=== PATIENT | male | born 1990 | race Hispanic/Latino ===

== ENCOUNTER 2017-11-25 16:34 | Emergency (ER) | payer SELFPAY ==
--- NOTE | 2017-11-25 17:46 | EDPHYS ---
Physician Documentation [facility] Name: Greg Serna Age: 27 yrs Sex: Male : 1990 Arrival Date: 11/25/2017 Time: 16:38 Bed 5 Private MD: out of town, doctor ED Physician Wesley Govea HPI: 11/25 17:09 This 27 yrs old Male presents to ER via Ambulatory with complaints of Chest gs Pain. 17:09 The patient or guardian reports chest pain that is located primarily in the anterior gs chest wall. The pain does not radiate. Associated signs and symptoms: Pertinent negatives: diaphoresis, dizziness, shortness of breath. The chest pain is described as sharp. Duration: The patient or guardian reports multiple episodes, that are intermittent, that wax and wane, with no pattern, the episodes last approximately 2 minute(s). Modifying factors: The symptoms are alleviated by nothing. the symptoms are aggravated by movement, twisting torso. Severity of pain: At its worst the pain was moderate in the emergency department the pain has resolved. The patient has experienced similar episodes in the past, a few times. Historical: - Allergies: 16:42 No Known Allergies; hj - Home Meds: 16:42 Xanax Oral [Active]; Lisinopril Oral [Active]; - PMHx: 16:42 Anxiety; Hypertension; - PSHx: 16:42 None; hj - Immunization history:: Adult Immunizations up to date. - Social history:: Smoking status: Patient uses tobacco products, denies chronic smoking, but will smoke occasionally, Patient uses alcohol, occasionally. - Ebola Screening: : Patient negative for fever greater than or equal to 101.5 degrees Fahrenheit, and additional compatible Ebola Virus Disease symptoms Patient denies exposure to infectious person Patient denies travel to an Ebola-affected area in the 21 days before illness onset. ROS: 17:09 All other systems are negative. gs Exam: 17:09 Head/Face: Normocephalic, atraumatic. Eyes: Pupils equal round and reactive to light, gs extra-ocular motions intact. Lids and lashes normal. Conjunctiva and sclera are non-icteric and not injected. Cornea within normal limits. Periorbital areas with no swelling, redness, or edema. ENT: Nares patent. No nasal discharge, no septal abnormalities noted. Tympanic membranes are normal and external auditory canals are clear. Oropharynx with no redness, swelling, or masses, exudates, or evidence of obstruction, uvula midline. Mucous membranes moist. Neck: Trachea midline, no thyromegaly or masses palpated, and no cervical lymphadenopathy. Supple, full range of motion without nuchal rigidity, or vertebral point tenderness. No Meningismus. Chest/axilla: Normal chest wall appearance and motion. Nontender with no deformity. No lesions are appreciated. Cardiovascular: Regular rate and rhythm with a normal S1 and S2. No gallops, murmurs, or rubs. Normal PMI, no JVD. No pulse deficits. Respiratory: Lungs have equal breath sounds bilaterally, clear to auscultation and percussion. No rales, rhonchi or wheezes noted. No increased work of breathing, no retractions or nasal flaring. Abdomen/GI: Soft, non-tender, with normal bowel sounds. No distension or tympany. No guarding or rebound. No evidence of tenderness throughout. Back: No spinal tenderness. No costovertebral tenderness. Full range of motion. Skin: Warm, dry with normal turgor. Normal color with no rashes, no lesions, and no evidence of cellulitis. MS/ Extremity: Pulses equal, no cyanosis. Neurovascular intact. Full, normal range of motion. Neuro: Awake and alert, GCS 15, oriented to person, place, time, and situation. Cranial nerves II-XII grossly intact. Motor strength 5/5 in all extremities. Sensory grossly intact. Cerebellar exam normal. Normal gait. 17:09 Constitutional: The patient appears in no acute distress, alert, awake. 17:09 ECG was reviewed by the Attending Physician. Vital Signs: 16:43 BP 141 / 84; Pulse 83; Resp 18; Temp 98.1(O); Pulse Ox 98% on R/A; Weight 81.65 kg; hj Height 5 ft. 4 in. (162.56 cm); Pain 6/10; 16:52 BP 139 / 88; Pulse 91; Resp 21; Pulse Ox 96% ; Pain 6/10; jl7 17:45 BP 139 / 88; Pulse 92; Resp 16; Pulse Ox 98% on R/A; jl7 16:43 Body Mass Index 30.90 (81.65 kg, 162.56 cm) hj MDM: 17:00 Patient medically screened. 17:09 Differential diagnosis: anxiety, chest wall pain, pleurisy, pneumonia. Data reviewed: vital signs, nurses notes. Response to treatment: the patient's symptoms have resolved after treatment, and as a result, I will discharge patient. 11/25 17:00 Order name: XRAY Chest Pa And Lat (2 Views) 06 17:49 Order name: EKG Electrocardiogram EDGA EC:09 Rate is 87 beats/min. Rhythm is regular. IL interval is normal. QRS interval is normal. T waves are Flattened in lead III. No ST changes noted. Clinical impression: Abnormal EKG without significant change. Interpreted by me. Administered Medications: No medications were administered Disposition: 11/25/17 17:45 Discharged to Home. Impression: Chest pain, unspecified. - Condition is Stable. - Discharge Instructions: Nonspecific Chest Pain, Managing Your High Blood Pressure. - Medication Reconciliation Form, Thank You Letter, Antibiotic Education, Prescription Opioid Use form. - Follow up: Private Physician; When: 2 - 3 days; Reason: Re-evaluation by your physician. Signatures: Dispatcher [employer] EDGA Tanvir Felton RN JOAN hj Bayron Fang RN RN jl7 Wesley Govea MD MD Corrections: (The following items were deleted from the chart) 17:53 17:45 11/25/2017 17:45 Discharged to Home. Impression: Chest pain, unspecified. jl7 Condition is Stable. Forms are Medication Reconciliation Form, Thank You Letter, Antibiotic Education, Prescription Opioid Use. Follow up: Private Physician; When: 2 - 3 days; Reason: Re-evaluation by your physician.
--- NOTE | 2017-11-25 17:46 | RAD REPORT ---
EXAM DESCRIPTION: RAD - Chest Pa And Lat (2 Views) - 11/25/2017 5:41 pm CLINICAL HISTORY: CHEST PAIN Chest pain. COMPARISON: Chest Single View dated 02/18/2016 FINDINGS: The lungs are clear. The heart is normal in size. No displaced fractures. IMPRESSION: No acute or concerning finding suspected.
--- NOTE | 2017-11-25 17:46 | ER ---
Nurse's Notes [facility] Name: Greg Serna Age: 27 yrs Sex: Male : 1990 Arrival Date: 11/25/2017 Time: 16:38 Bed 5 Private MD: out of town, doctor Diagnosis: Chest pain, unspecified Presentation: 11/25 16:39 Presenting complaint: Patient states: an hour ago, my chest started hurting, sharp hj pain, pain is 6/10; reports SOB; radiating to L arm and back of neck; denies nausea and vomiting;. Transition of care: patient was not received from another setting of care. Onset of symptoms was November 25, 2017 at 15:30. Risk Assessment: Do you want to hurt yourself or someone else? Patient reports no desire to harm self or others. Initial Sepsis Screen: Does the patient meet any 2 criteria? No. Patient's initial sepsis screen is negative. Does the patient have a suspected source of infection? No. Patient's initial sepsis screen is negative. Care prior to arrival: None. 16:39 Method Of Arrival: Ambulatory 16:39 Acuity: TENNILLE 3 hj Triage Assessment: 16:42 General: Appears in no apparent distress. uncomfortable, Behavior is calm, cooperative, hj appropriate for age. Pain: Complains of pain in chest. Cardiovascular: Reports chest pain. Historical: - Allergies: 16:42 No Known Allergies; hj - Home Meds: 16:42 Xanax Oral [Active]; Lisinopril Oral [Active]; hj - PMHx: 16:42 Anxiety; Hypertension; hj - PSHx: 16:42 None; hj - Immunization history:: Adult Immunizations up to date. - Social history:: Smoking status: Patient uses tobacco products, denies chronic smoking, but will smoke occasionally, Patient uses alcohol, occasionally. - Ebola Screening: : Patient negative for fever greater than or equal to 101.5 degrees Fahrenheit, and additional compatible Ebola Virus Disease symptoms Patient denies exposure to infectious person Patient denies travel to an Ebola-affected area in the 21 days before illness onset. Screenin:43 Abuse screen: Denies threats or abuse. Denies injuries from another. Nutritional hj screening: No deficits noted. Tuberculosis screening: No symptoms or risk factors identified. Fall Risk None identified. Assessment: 16:43 Pain: Pain radiates to left arm Pain began 1 hour ago. hj 16:52 General: Appears in no apparent distress. uncomfortable, Behavior is calm, cooperative, jl7 appropriate for age. Pain: Complains of pain in anterior aspect of left upper chest Pain radiates to left arm Pain currently is 6 out of 10 on a pain scale. Quality of pain is described as sharp, Pain began 1 hour ago. Is intermittent. Neuro: Level of Consciousness is awake, alert, obeys commands, Oriented to person, place, time, situation. Cardiovascular: Heart tones S1 S2 present Patient's skin is warm and dry. Respiratory: Airway is patent Respiratory effort is even, unlabored, Respiratory pattern is regular, symmetrical, Breath sounds are clear bilaterally. GI: No signs and/or symptoms were reported involving the gastrointestinal system. Patient currently denies diarrhea, nausea, vomiting. : No signs and/or symptoms were reported regarding the genitourinary system. EENT: No signs and/or symptoms were reported regarding the EENT system. Derm: Skin is pink, warm \T\ dry. Musculoskeletal: No signs and/or symptoms reported regarding the musculoskeletal system. 17:45 Reassessment: Dr. Govea at bedside discussing plan of care. jl7 Vital Signs: 16:43 BP 141 / 84; Pulse 83; Resp 18; Temp 98.1(O); Pulse Ox 98% on R/A; Weight 81.65 kg; hj Height 5 ft. 4 in. (162.56 cm); Pain 6/10; 16:52 BP 139 / 88; Pulse 91; Resp 21; Pulse Ox 96% ; Pain 6/10; jl7 17:45 BP 139 / 88; Pulse 92; Resp 16; Pulse Ox 98% on R/A; jl7 16:43 Body Mass Index 30.90 (81.65 kg, 162.56 cm) ED Course: 16:38 Patient arrived in ED. mr 16:38 out of town, doctor is Private Physician. mr 16:41 Triage completed. hj 16:42 Arm band placed on right wrist. hj 16:43 secured entrance monitor on. Pulse ox on. NIBP on. hj 16:43 Patient maintains SpO2 saturation greater than 95% on room air. hj 16:44 Bayron Fang, JOAN is Primary Nurse. jl7 16:52 Patient has correct armband on for positive identification. Placed in gown. Bed in low jl7 position. Call light in reach. Side rails up X 1. secured entrance monitor on. Pulse ox on. NIBP on. Warm blanket given. 16:55 Wesley Govea MD is Attending Physician. 17:38 X-ray completed. Portable x-ray completed in exam room. Patient tolerated procedure bb2 well. 17:41 XRAY Chest Pa And Lat (2 Views) In Process Unspecified. EDMS 17:52 No provider procedures requiring assistance completed. Patient did not have IV access jl7 during this emergency room visit. Administered Medications: No medications were administered Outcome: 17:45 Discharge ordered by . 17:52 Discharged to home ambulatory. jl7 17:52 Condition: stable 17:52 Discharge instructions given to patient, Instructed on discharge instructions, follow up and referral plans. Demonstrated understanding of instructions, follow-up care. 17:53 Patient left the ED. jl7 Signatures: Dispatcher [employer] EDIN Mary Schmidt Henry, RN RN Bayron Fang RN RN jl7 Wesley Govea MD MD Isela Sidhu bb2 Corrections: (The following items were deleted from the chart) 17:53 17:52 IV discontinued, intact, bleeding controlled, No redness/swelling at site. jl7 Pressure dressing applied, jl7
--- NOTE | 2017-11-25 20:35 | EKG ---
Test Date: 2017-11-25 Test Time: 16:41:12 [employer]el Automotive Technician: ERWIN MEASUREMENT RESULTS: Intervals: Rate: 87 PA: 140 QRSD: 78 QT: 360 QTc: 433 [place]: P: 21 PA: 140 QRS: 20 T: 18 INTERPRETIVE STATEMENTS: Normal sinus rhythm Normal ECG Compared to ECG 02/18/2016 14:21:44 Sinus arrhythmia no longer present Electronically Signed On 11-25-17 20:35:05 CDT by Martir Pearl
== END 2017-11-25 17:53 | disposition home or self-care (01) ==
LOC: ER 16:34
DX: R07.9 Chest pain, unspecified (principal); I10 Essential (primary) hypertension; F17.200 Nicotine dependence, unspecified, uncomplicated
CPT/HCPCS: 71046; 93005; 99284

== ENCOUNTER 2018-04-10 00:34 | Emergency (ER) | payer SELFPAY ==
--- NOTE | 2018-04-10 00:52 | EDPHYS ---
Physician Documentation [facility] Name: Greg Serna Age: 27 yrs Sex: Male : 1990 Arrival Date: 04/10/2018 Time: 00:34 Bed 7 Private MD: ED Physician Mikal Celaya HPI: 04/10 00:53 This 27 yrs old Male presents to ER via Ambulatory with complaints of Anxiety. snw 00:53 Onset: The symptoms/episode began/occurred chronic. Associated signs and symptoms: The snw patient has no apparent associated signs or symptoms. Modifying factors: The patient symptoms are alleviated by nothing. The patient has experienced similar episodes in the past, chronically. The patient has not recently seen a physician. pt states he has daily panic attacks, has not been to counseling, states he has taken xanax daily x 10 yrs. Historical: - Allergies: 00:49 No Known Allergies; ak1 - Home Meds: 00:49 Xanax Oral [Active]; lisinopril Oral [Active]; ak1 - PMHx: 00:49 Anxiety; Hypertension; ak1 - PSHx: 00:49 None; ak1 - Immunization history:: Adult Immunizations unknown. - Social history:: Smoking status: Patient/guardian denies using tobacco. - Ebola Screening: : No symptoms or risks identified at this time. ROS: 00:53 Constitutional: Negative for fever, chills, and weight loss, Eyes: Negative for injury, snw pain, redness, and discharge, ENT: Negative for injury, pain, and discharge, Neck: Negative for injury, pain, and swelling, Cardiovascular: Negative for chest pain, palpitations, and edema, Respiratory: Negative for shortness of breath, cough, wheezing, and pleuritic chest pain, Abdomen/GI: Negative for abdominal pain, nausea, vomiting, diarrhea, and constipation, Back: Negative for injury and pain, : Negative for injury, bleeding, discharge, and swelling, MS/Extremity: Negative for injury and deformity, Skin: Negative for injury, rash, and discoloration, Neuro: Negative for headache, weakness, numbness, tingling, and seizure. 00:53 Psych: Positive for anxiety. Exam: 00:52 Constitutional: This is a well developed, well nourished patient who is awake, alert, snw and in no acute distress. Head/Face: Normocephalic, atraumatic. Eyes: Pupils equal round and reactive to light, extra-ocular motions intact. Lids and lashes normal. Conjunctiva and sclera are non-icteric and not injected. Cornea within normal limits. Periorbital areas with no swelling, redness, or edema. ENT: Nares patent. No nasal discharge, no septal abnormalities noted. Tympanic membranes are normal and external auditory canals are clear. Oropharynx with no redness, swelling, or masses, exudates, or evidence of obstruction, uvula midline. Mucous membranes moist. Neck: Trachea midline, no thyromegaly or masses palpated, and no cervical lymphadenopathy. Supple, full range of motion without nuchal rigidity, or vertebral point tenderness. No Meningismus. Chest/axilla: Normal chest wall appearance and motion. Nontender with no deformity. No lesions are appreciated. Cardiovascular: Regular rate and rhythm with a normal S1 and S2. No gallops, murmurs, or rubs. Normal PMI, no JVD. No pulse deficits. Respiratory: Lungs have equal breath sounds bilaterally, clear to auscultation and percussion. No rales, rhonchi or wheezes noted. No increased work of breathing, no retractions or nasal flaring. Abdomen/GI: Soft, non-tender, with normal bowel sounds. No distension or tympany. No guarding or rebound. No evidence of tenderness throughout. Back: No spinal tenderness. No costovertebral tenderness. Full range of motion. Skin: Warm, dry with normal turgor. Normal color with no rashes, no lesions, and no evidence of cellulitis. MS/ Extremity: Pulses equal, no cyanosis. Neurovascular intact. Full, normal range of motion. Neuro: Awake and alert, GCS 15, oriented to person, place, time, and situation. Cranial nerves II-XII grossly intact. Motor strength 5/5 in all extremities. Sensory grossly intact. Cerebellar exam normal. Normal gait. 00:52 Psych: Behavior/mood is anxious, Affect is calm, Oriented to person, place, time, Patient has no thoughts/intents to harm self or others. Vital Signs: 00:49 BP 160 / 100; Pulse 71; Resp 18; Temp 98.3; Pulse Ox 99% on R/A; Weight 81.65 kg (R); ak1 Height 5 ft. 5 in. (165.10 cm) (R); Pain 0/10; 00:59 BP 131 / 90; Pulse 58; Resp 16; Temp 98.3; Pulse Ox 99% on R/A; Pain 0/10; ak1 00:49 Body Mass Index 29.95 (81.65 kg, 165.10 cm) ak1 MDM: 00:43 Patient medically screened. snw 00:54 Data reviewed: vital signs, nurses notes. Data interpreted: Pulse oximetry: on room air snw is 99 %. Interpretation: normal. Counseling: I had a detailed discussion with the patient and/or guardian regarding: the historical points, exam findings, and any diagnostic results supporting the discharge/admit diagnosis, the presence of at least one elevated blood pressure reading (>120/80) during this emergency department visit, the need for outpatient follow up, for definitive care. Special discussion: Based on the history and exam findings, there is no indication for further emergent testing or inpatient evaluation. I discussed with the patient/guardian the need to see the primary care provider for further evaluation of the symptoms. I discussed with the patient/guardian the need to see the psychiatrist for further evaluation of the symptoms. Administered Medications: 00:57 Drug: XANax Tablet 0.5 mg Route: PO; ak1 00:58 Follow up: Response: No adverse reaction ak1 Disposition: 06:54 Co-signature as Attending Physician, Mikal Celaya MD I agree with the assessment and wa plan of care. Disposition: 04/10/18 00:52 Discharged to Home. Impression: Patient's intentional underdosing of medication regimen, Anxiety disorder, unspecified. - Condition is Stable. - Discharge Instructions: Panic Attacks, Hypertension, Generalized Anxiety Disorder. - Medication Reconciliation Form, Thank You Letter, Antibiotic Education, Prescription Opioid Use form. - Follow up: Private Physician; When: 1 - 2 days; Reason: Recheck today's complaints, Continuance of care, Re-evaluation by your physician. Follow up: Emergency Department; When: As needed; Reason: Worsening of condition. Signatures: Alejandra Ca, MANAGER IMAGING-C MANAGER IMAGING-Csnw Mariel Billings RN RN ak1 Mikal Celaya MD MD ok Corrections: (The following items were deleted from the chart) 01:00 00:52 04/10/2018 00:52 Discharged to Home. Impression: Patient's intentional ak1 underdosing of medication regimen; Anxiety disorder, unspecified. Condition is Stable. Forms are Medication Reconciliation Form, Thank You Letter, Antibiotic Education, Prescription Opioid Use. Follow up: Private Physician; When: 1 - 2 days; Reason: Recheck today's complaints, Continuance of care, Re-evaluation by your physician. Follow up: Emergency Department; When: As needed; Reason: Worsening of condition. snw
--- NOTE | 2018-04-10 00:52 | ER ---
Nurse's Notes [facility] Name: Greg Serna Age: 27 yrs Sex: Male : 1990 Arrival Date: 04/10/2018 Time: 00:34 Bed 7 Private MD: Diagnosis: Patient's intentional underdosing of medication regimen;Anxiety disorder, unspecified Presentation: 04/10 00:46 Presenting complaint: Patient states: he has daily anxiety attacks. pt has run out of ak1 his alprazolam and his PCP is OOT. pt stated he did have a beer tonight to try and "calm down" pt stated he has not take his blood pressure medication tonight either. Transition of care: patient was not received from another setting of care. Onset of symptoms was April 10, 2018. Risk Assessment: Do you want to hurt yourself or someone else? Patient reports no desire to harm self or others. Initial Sepsis Screen: Does the patient meet any 2 criteria? No. Patient's initial sepsis screen is negative. Does the patient have a suspected source of infection? No. Patient's initial sepsis screen is negative. Care prior to arrival: None. 00:46 Method Of Arrival: Ambulatory ak1 00:46 Acuity: TENNILLE 4 ak1 Triage Assessment: 00:49 General: Appears in no apparent distress. Behavior is calm, cooperative. Pain: Denies ak1 pain. EENT: No signs and/or symptoms were reported regarding the EENT system. Neuro: No deficits noted. Cardiovascular: No deficits noted. Respiratory: No deficits noted. GI: No signs and/or symptoms were reported involving the gastrointestinal system. : No signs and/or symptoms were reported regarding the genitourinary system. Derm: No signs and/or symptoms reported regarding the dermatologic system. Musculoskeletal: No signs and/or symptoms reported regarding the musculoskeletal system. Historical: - Allergies: 00:49 No Known Allergies; ak1 - Home Meds: 00:49 Xanax Oral [Active]; lisinopril Oral [Active]; ak1 - PMHx: 00:49 Anxiety; Hypertension; ak1 - PSHx: 00:49 None; ak1 - Immunization history:: Adult Immunizations unknown. - Social history:: Smoking status: Patient/guardian denies using tobacco. - Ebola Screening: : No symptoms or risks identified at this time. Screenin:51 Abuse screen: Denies threats or abuse. Denies injuries from another. Nutritional ak1 screening: No deficits noted. Tuberculosis screening: No symptoms or risk factors identified. Fall Risk None identified. Assessment: 00:51 Reassessment: Patient appears in no apparent distress at this time. No changes from ak1 previously documented assessment. Patient is alert, oriented x 3, equal unlabored respirations, skin warm/dry/pink. see triage assessment. Vital Signs: 00:49 BP 160 / 100; Pulse 71; Resp 18; Temp 98.3; Pulse Ox 99% on R/A; Weight 81.65 kg (R); ak1 Height 5 ft. 5 in. (165.10 cm) (R); Pain 0/10; 00:59 BP 131 / 90; Pulse 58; Resp 16; Temp 98.3; Pulse Ox 99% on R/A; Pain 0/10; ak1 00:49 Body Mass Index 29.95 (81.65 kg, 165.10 cm) ak1 ED Course: 00:34 Patient arrived in ED. am2 00:43 Alejandra Ca FNP-C is PHCP. snw 00:43 Mikal Celaya MD is Attending Physician. snw 00:45 Mariel Billings RN is Primary Nurse. ak1 00:48 Triage completed. ak1 00:49 Arm band placed on Patient placed in an exam room, on a stretcher, on pulse oximetry, ak1 Patient notified of wait time. 00:51 Patient has correct armband on for positive identification. Bed in low position. Call ak1 light in reach. Side rails up X 1. Pulse ox on. NIBP on. 00:51 No provider procedures requiring assistance completed. Patient did not have IV access ak1 during this emergency room visit. Administered Medications: 00:57 Drug: XANax Tablet 0.5 mg Route: PO; ak1 00:58 Follow up: Response: No adverse reaction ak1 Outcome: 00:52 Discharge ordered by . snw 01:00 Discharged to home ambulatory, with family. ak1 01:00 Condition: good 01:00 Discharge instructions given to patient, Instructed on discharge instructions, follow up and referral plans. Demonstrated understanding of instructions, follow-up care. 01:00 Patient left the ED. ak1 Signatures: Alejandra Ca, RETAIL SHIFT LEADER-C RETAIL SHIFT LEADER-Csnw Mariel Billings, RN RN ak1 Mable Varghese am2
[2018-04-10] MEDS ORDERED: ALPRAZOLAM 0.5 MG TABLET ONE (01:01)
== END 2018-04-10 01:00 | disposition home or self-care (01) ==
LOC: ER 00:34
DX: F41.9 Anxiety disorder, unspecified (principal); T42.4X6A Underdosing of benzodiazepines, initial encounter; Z91.128 Patient's intentional underdosing of medication regimen for other reason; I10 Essential (primary) hypertension
CPT/HCPCS: 99283

== ENCOUNTER 2019-01-16 14:08 | Emergency (ER) | payer SELFPAY ==
[2019-01-16] MEDS ORDERED: LEVALBUTEROL 1.25 MG/3 ML NEB ONE (15:06)
[2019-01-16 15:25] LABS: Urine Blood TRACE (NEG); Urine Glucose NEGATIVE (NEG); Urine Protein NEGATIVE (NEG); Urine Specific Gravity 1.015 (1.005-1.030); Urine pH 7.5 (5.0-7.0)
--- NOTE | 2019-01-16 15:35 | RAD REPORT ---
EXAM DESCRIPTION: RAD - Chest Pa And Lat (2 Views) - 01/16/2019 3:26 pm CLINICAL HISTORY: PRODUCTIVE COUGH Chest pain. COMPARISON: Chest Pa And Lat (2 Views) dated 11/25/2017; Chest Single View dated 02/18/2016 FINDINGS: The lungs are clear. The heart is normal in size. No displaced fractures. IMPRESSION: No acute or concerning finding suspected.
[2019-01-16] MEDS ORDERED: dexAMETHasone 10 MG/ML VIAL ONE (15:52)
[2019-01-16] MEDS ORDERED: ONDANSETRON 4 MG (ODT) TAB ONE (15:52)
--- NOTE | 2019-01-16 16:24 | ER ---
Nurse's Notes [facility] Name: Greg Serna Age: 28 yrs Sex: Male : 1990 Arrival Date: 01/16/2019 Time: 14:09 Bed 28 Private MD: Diagnosis: Acute bronchitis Presentation: 01/16 14:13 Presenting complaint: Patient states: cough, dizzy, headache x 3 days ago. Pt also c/o aa5 vomiting that began yesterday and diarrhea. Pt also c/o pain with urination. Transition of care: patient was not received from another setting of care. Onset of symptoms was January 2019. Risk Assessment: Do you want to hurt yourself or someone else? Patient reports no desire to harm self or others. Initial Sepsis Screen: Does the patient meet any 2 criteria? No. Patient's initial sepsis screen is negative. Does the patient have a suspected source of infection? No. Patient's initial sepsis screen is negative. Care prior to arrival: None. 14:13 Acuity: TENNILLE 3 aa5 14:13 Method Of Arrival: Ambulatory aa5 Historical: - Allergies: 14:15 No Known Allergies; aa5 - Home Meds: 14:15 losartan-hydrochlorothiazide 100-12.5 mg oral tab once daily [Active]; aa5 14:15 Xanax Oral [Active]; aa5 - PMHx: 14:15 Anxiety; Hypertension; aa5 - PSHx: 14:15 None; aa5 - Immunization history:: Flu vaccine is not up to date. - Social history:: Smoking status: Patient uses tobacco products, denies chronic smoking, but will smoke occasionally. - Ebola Screening: : No symptoms or risks identified at this time. Screenin:44 Abuse screen: Denies threats or abuse. Nutritional screening: No deficits noted. la1 Tuberculosis screening: No symptoms or risk factors identified. Fall Risk None identified. Assessment: 15:44 General: Appears in no apparent distress. Behavior is calm, cooperative. Pain: Denies la1 pain. Neuro: Level of Consciousness is awake, alert, obeys commands, Oriented to person, place, time, situation. Cardiovascular: Capillary refill < 3 seconds Patient's skin is warm and dry. Respiratory: Airway is patent Respiratory effort is even, unlabored, Respiratory pattern is regular, symmetrical, Breath sounds are clear bilaterally. GI: No signs and/or symptoms were reported involving the gastrointestinal system. : No signs and/or symptoms were reported regarding the genitourinary system. 16:35 Reassessment: Patient appears in no apparent distress at this time. No changes from la1 previously documented assessment. Patient and/or family updated on plan of care and expected duration. Pain level reassessed. Vital Signs: 14:15 BP 142 / 85; Pulse 71; Resp 16 S; Temp 97.6(TE); Pulse Ox 97% on R/A; Weight 83.91 kg aa5 (R); Height 5 ft. 6 in. (167.64 cm) (R); Pain 0/10; 14:15 Body Mass Index 29.86 (83.91 kg, 167.64 cm) aa5 ED Course: 14:09 Patient arrived in ED. as 14:13 Arm band placed on. aa5 14:14 Triage completed. aa5 14:17 Ottoniel Duron PA is PHCP. [facility] 14:17 Yoel Harrington MD is Attending Physician. [facility] 14:45 Isaiah Schmitt, JOAN is Primary Nurse. la1 15:23 Chest Pa And Lat (2 Views) XRAY In Process Unspecified. EDMS 15:44 Bed in low position. Call light in reach. la1 16:35 No provider procedures requiring assistance completed. Patient did not have IV access la1 during this emergency room visit. Administered Medications: 15:07 Drug: Xopenex (3) 1.25 mg Route: Inhalation; mg2 15:57 Drug: Zofran 4 mg Route: PO; la1 16:35 Follow up: Response: No adverse reaction la1 15:57 Drug: Decadron 10 mg Route: IM; Site: right gluteus; la1 16:36 Follow up: Response: No adverse reaction la1 Outcome: 16:24 Discharge ordered by . yfn 16:35 Discharged to home ambulatory. la1 16:35 Condition: stable 16:35 Discharge instructions given to patient, Instructed on discharge instructions, follow up and referral plans. medication usage, Demonstrated understanding of instructions, follow-up care, medications, Prescriptions given X 1. 16:35 Patient left the ED. la1 Signatures: Dispatcher [employer] EDMS Ottoniel Duron PA PA jmm Martinez, Amelia as Calderon, Michelle, RN RN aa5 Isaiah Schmitt, RN RN la1 Domo Gee, RN RN mg2
--- NOTE | 2019-01-16 16:25 | EDPHYS ---
Physician Documentation [facility] Name: Greg Serna Age: 28 yrs Sex: Male : 1990 Arrival Date: 01/16/2019 Time: 14:09 Bed 28 Private MD: ED Physician Yoel Harrington HPI: 01/16 14:40 This 28 yrs old Male presents to ER via Ambulatory with complaints of Flu jmm Symptoms. 14:40 The patient or guardian reports cough. Onset: The symptoms/episode began/occurred jmm gradually, 3 day(s) ago. Modifying factors: The symptoms are alleviated by nothing. the symptoms are aggravated by nothing. Associated signs and symptoms: Pertinent positives: vomiting. This is a 28 year old male with a history of anxiety, htn that presents to the ED with complaints of productive cough, vomiting, diarrhea, and burning with urniation. Patient denies abdominal pain. . Historical: - Allergies: 14:15 No Known Allergies; aa5 - Home Meds: 14:15 losartan-hydrochlorothiazide 100-12.5 mg oral tab once daily [Active]; aa5 14:15 Xanax Oral [Active]; aa5 - PMHx: 14:15 Anxiety; Hypertension; aa5 - PSHx: 14:15 None; aa5 - Immunization history:: Flu vaccine is not up to date. - Social history:: Smoking status: Patient uses tobacco products, denies chronic smoking, but will smoke occasionally. - Ebola Screening: : No symptoms or risks identified at this time. ROS: 14:40 Constitutional: Negative for fever, chills, and weight loss, Cardiovascular: Negative jmm for chest pain, palpitations, and edema. 14:40 Respiratory: Positive for cough. 14:40 Abdomen/GI: Positive for nausea and vomiting, diarrhea. 14:40 All other systems are negative. Exam: 14:40 Constitutional: This is a well developed, well nourished patient who is awake, alert, jmm and in no acute distress. Head/Face: atraumatic. Eyes: EOMI, no conjunctival erythema appreciated 14:40 Neck: Trachea midline, Supple Chest/axilla: Normal chest wall appearance and motion. Cardiovascular: Regular rate and rhythm. No edema appreciated 14:40 Back: Normal ROM Skin: General appearance color normal MS/ Extremity: Moves all extremities, no obvious deformities appreciated, no edema noted to the lower extremities Neuro: Awake and alert, normal gait Psych: Behavior is normal, Mood is normal, Patient is cooperative and pleasant 14:40 ENT: TM's: Posterior pharynx: is normal. 14:40 Respiratory: the patient does not display signs of respiratory distress, Respirations: normal, Breath sounds: are clear throughout. 14:40 Abdomen/GI: Inspection: abdomen appears normal, Bowel sounds: normal, Palpation: abdomen is soft and non-tender, in all quadrants. Vital Signs: 14:15 BP 142 / 85; Pulse 71; Resp 16 S; Temp 97.6(TE); Pulse Ox 97% on R/A; Weight 83.91 kg aa5 (R); Height 5 ft. 6 in. (167.64 cm) (R); Pain 0/10; 14:15 Body Mass Index 29.86 (83.91 kg, 167.64 cm) aa5 MDM: 14:48 Patient medically screened. [facility] 16:22 Data reviewed: vital signs, nurses notes. Counseling: I had a detailed discussion with yfn the patient and/or guardian regarding: the historical points, exam findings, and any diagnostic results supporting the discharge/admit diagnosis, lab results, radiology results, the need for outpatient follow up. ED course: Patient is alert and non toxic in appearance in the ED. Symptoms appear most likely due to viral illness. Patient is otherwise given strict return precautions. Patient understood and agrees with the plan of care. . 01/16 15:09 Order name: Urine Dipstick--Ancillary (enter results); Complete Time: 15:36 [facility] 01/16 14:52 Order name: Chest Pa And Lat (2 Views) XRAY; Complete Time: 15:44 [facility] 01/16 14:52 Order name: Urine Dipstick-Ancillary (obtain specimen); Complete Time: 15:05 [facility] 01/16 15:46 Order name: PO challenge; Complete Time: 15:56 [facility] Administered Medications: 15:07 Drug: Xopenex (3) 1.25 mg Route: Inhalation; mg2 15:57 Drug: Zofran 4 mg Route: PO; la1 16:35 Follow up: Response: No adverse reaction la1 15:57 Drug: Decadron 10 mg Route: IM; Site: right gluteus; la1 16:36 Follow up: Response: No adverse reaction la1 Disposition: 01/16/19 16:24 Discharged to Home. Impression: Acute bronchitis. - Condition is Stable. - Discharge Instructions: Acute Bronchitis, Adult. - Prescriptions for promethazine- DM - take 5 milliliter by ORAL route every 4-6 hours; 120 milliliter. - Medication Reconciliation Form, Thank You Letter, Antibiotic Education, Prescription Opioid Use form. - Follow up: Private Physician; When: 1 - 2 days; Reason: Recheck today's complaints, Continuance of care, Re-evaluation by your physician. Addendum: 01/19/2019 09:24 Co-signature as Attending Physician, Yoel Harrington MD I agree with the assessment and k dr plan of care. Signatures: Dispatcher [employer] EDMS Yoel Harrington MD MD [facility] Ottoniel Duron PA PA jmm Calderon, Audri, RN RN aa5 Isaiah Schmitt RN RN la1 Domo Gee RN RN mg2 Corrections: (The following items were deleted from the chart) 01/16 16:35 16:24 01/16/2019 16:24 Discharged to Home. Impression: Acute bronchitis. Condition is la1 Stable. Forms are Medication Reconciliation Form, Thank You Letter, Antibiotic Education, Prescription Opioid Use. Follow up: Private Physician; When: 1 - 2 days; Reason: Recheck today's complaints, Continuance of care, Re-evaluation by your physician. yfn
== END 2019-01-16 16:35 | disposition home or self-care (01) ==
LOC: ER 14:08
DX: J20.9 Acute bronchitis, unspecified (principal); I10 Essential (primary) hypertension; F41.9 Anxiety disorder, unspecified; Z72.0 Tobacco use
CPT/HCPCS: 71046; 81003; 96372; 99284; J1100

== ENCOUNTER 2019-04-09 16:03 | Emergency (ER) | payer SELFPAY ==
[2019-04-09] MEDS ORDERED: IBUPROFEN 200 MG TAB PO ONE (17:33)
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
--- NOTE | 2019-04-09 18:50 | ER ---
Nurse's Notes [facility] Name: Greg Serna Age: 28 yrs Sex: Male : 1990 Arrival Date: 04/09/2019 Time: 18:06 Bed 11 Private MD: Diagnosis: Displaced fracture of base of fifth metacarpal bone. left hand-proximal ;Displaced fracture of base of fourth metacarpal bone, left hand-distal Screenin/31 18:35 Abuse screen: Denies threats or abuse. Denies injuries from another. Nutritional hb screening: No deficits noted. Tuberculosis screening: No symptoms or risk factors identified. Fall Risk None identified. Assessment: 18:07 Reassessment: see paper chart for downtime charting. hb 18:48 Reassessment: splint check by JOSI Arriaga. hb ED Course: 18:06 Hand Left 3 View In Process Unspecified. kb 18:06 Patient arrived in ED. kb 18:06 Cor[facility] Myers [facility]C [facility]. kb 18:06 Yoel Harrington MD is Attending Physician. kb 18:07 Liza Merritt, RN is Primary Nurse. iw 18:27 Orthoglass splint: Ulnar gutter/Boxer splint applied on left forearm. Radial pulse jb1 present and within normal limits before and after application of splint. Capillary refill was one second before and after application of splint.. 18:48 No provider procedures requiring assistance completed. Patient did not have IV access hb during this emergency room visit. Administered Medications: No medications were administered Outcome: 18:24 Discharge ordered by MD. kb 18:48 Discharged to home ambulatory. hb 18:48 Condition: stable 18:48 Discharge instructions given to patient, Instructed on discharge instructions, follow up and referral plans. medication usage, Demonstrated understanding of instructions, follow-up care, medications, splint care, Prescriptions given X 1. 18:49 Patient left the ED. hb Signatures: Kristian Vera jb1 Corina Myers FNP-C FNP-Ckb Williams, Irene, RN RN iw Marixa Bush RN RN hb
== END 2019-04-09 18:49 | disposition home or self-care (01) ==
LOC: ER 16:03
PROC: 2W3DX1Z Immobilization of Left Lower Arm using Splint (ICD-10-PCS; principal; 2019-04-09)
DX: S62.317A Displaced fracture of base of fifth metacarpal bone, left hand, initial encounter for closed fracture (principal); S62.315A Displaced fracture of base of fourth metacarpal bone, left hand, initial encounter for closed fracture; Y04.2XXA Assault by strike against or bumped into by another person, initial encounter; Y93.89 Activity, other specified; Y92.9 Unspecified place or not applicable
CPT/HCPCS: 99283

== ENCOUNTER 2019-11-21 09:55 | Emergency (ER) | payer SELFPAY ==
--- NOTE | 2019-11-21 10:36 | ER ---
Nurse's Notes [facility] Name: Gerg Serna Age: 29 yrs Sex: Male : 1990 Arrival Date: 11/21/2019 Time: 09:57 Bed 19 Private MD: Yuri Minaya T Diagnosis: Acute tonsillitis Presentation: 11/20 10:17 Chief complaint: Patient states: Sore throat since yesterday. Hurts to swallow and ca1 unable to eat anything. Denies fever. Coronavirus screen: Proceed with normal triage. Patient denies a cough. Patient denies shortness of breath or difficulty breathing. Patient denies measured and/or subjective temperature greater than 100.4F prior to today's visit. Patient denies travel on a cruise ship or to a country the [facility] currently lists as an affected area. Patient denies contact with known and/or suspected case of COVID-19. Ebola Screen: Patient negative for fever greater than or equal to 101.5 degrees Fahrenheit, and additional compatible Ebola Virus Disease symptoms Patient denies exposure to infectious person. Patient denies travel to an Ebola-affected area in the 21 days before illness onset. No symptoms or risks identified at this time. Initial Sepsis Screen: Does the patient meet any 2 criteria? No. Patient's initial sepsis screen is negative. Does the patient have a suspected source of infection? No. Patient's initial sepsis screen is negative. Risk Assessment: Do you want to hurt yourself or someone else? Patient reports no desire to harm self or others. Onset of symptoms was November 21, 2019. 10:17 Method Of Arrival: Ambulatory ca1 10:17 Acuity: TENNILLE 4 ca1 Triage Assessment: 10:19 General: Appears in no apparent distress. comfortable, Behavior is calm, cooperative, ca1 appropriate for age. Pain: Complains of pain in throat Pain currently is 6 out of 10 on a pain scale. Pain began 1 day ago. Aggravated by eating. EENT: Throat is clear is reddened bilaterally. Neuro: Level of Consciousness is awake, alert, obeys commands, Oriented to person, place, time, situation, Appropriate for age. Cardiovascular: Heart tones S1 S2 present Capillary refill < 3 seconds Patient's skin is warm and dry. Respiratory: Airway is patent Respiratory effort is even, unlabored, Respiratory pattern is regular, symmetrical, Breath sounds are clear bilaterally. GI: Abdomen is flat, non-distended, Bowel sounds present X 4 quads. Abd is soft and non tender X 4 quads. : No signs and/or symptoms were reported regarding the genitourinary system. Derm: Skin is intact, is healthy with good turgor, Skin is pink, warm \T\ dry. Musculoskeletal: Circulation, motion, and sensation intact. Capillary refill < 3 seconds. Historical: - Allergies: 10:19 No Known Allergies; ca1 - Home Meds: 10:19 olmesartan-hydrochlorothiazide oral 20-12.5mg oral 1 tab once daily [Active]; Xanax ca1 Oral [Active]; - PMHx: 10:19 Anxiety; Hypertension; ca1 - PSHx: 10:19 None; ca1 - Immunization history:: Adult Immunizations up to date. - Social history:: Smoking status: Patient reports the use of cigarette tobacco products, smokes one-half pack cigarettes per day. - Family history:: not pertinent. Screenin:20 Abuse screen: Denies threats or abuse. Denies injuries from another. Nutritional ca1 screening: No deficits noted. Tuberculosis screening: No symptoms or risk factors identified. Fall Risk None identified. Assessment: 10:20 Reassessment: SEE triage notes. Respiratory: Airway is patent Respiratory effort is ca1 even, unlabored, Respiratory pattern is regular, symmetrical, Breath sounds are clear bilaterally. 10:25 Reassessment: VO cancel strep swab. ca1 10:50 Reassessment: Patient appears in no apparent distress at this time. Patient is alert, ca1 oriented x 3, equal unlabored respirations, skin warm/dry/pink. Vital Signs: 10:17 BP 118 / 67; Pulse 72; Resp 16 S; Temp 97.2(TE); Pulse Ox 100% on R/A; Weight 81.65 kg ca1 (R); Height 5 ft. 6 in. (167.64 cm) (R); Pain 6/10; 10:50 BP 107 / 79; Pulse 69; Resp 15 S; Pulse Ox 100% on R/A; ca1 10:17 Body Mass Index 29.05 (81.65 kg, 167.64 cm) ca1 ED Course: 09:57 Patient arrived in ED. ag5 09:57 Yuri Minaya MD is Private Physician. ag5 09:58 Lukas Castillo MD is Attending Physician. [facility] 10:16 Ayde Hong, RN is Primary Nurse. ca1 10:18 Triage completed. ca1 10:19 Arm band placed on right wrist. ca1 10:20 Patient has correct armband on for positive identification. Bed in low position. Call ca1 light in reach. Side rails up X 1. Pulse ox on. NIBP on. 10:20 No provider procedures requiring assistance completed. Patient did not have IV access ca1 during this emergency room visit. 10:34 Yuri Minaya MD is Referral Physician. [facility] Administered Medications: 10:34 Drug: Augmentin 875 mg Route: PO; ca1 10:50 Follow up: Response: No adverse reaction ca1 Outcome: 10:35 Discharge ordered by . [facility] 10:51 Discharged to home ambulatory. ca1 10:51 Condition: stable 10:51 Discharge instructions given to patient, Instructed on discharge instructions, follow up and referral plans. medication usage, Demonstrated understanding of instructions, follow-up care, medications, Prescriptions given X 1. 10:51 Patient left the ED. ca1 Signatures: Lukas Castillo MD MD cha Acob, Cheryl, RN RN ca1 Carolyn Dang ag5 Corrections: (The following items were deleted from the chart) 10:25 10:20 Respiratory: Airway is patent Respiratory effort is even, unlabored, Respiratory ca1 pattern is regular, symmetrical, ca1
--- NOTE | 2019-11-21 10:36 | EDPHYS ---
Physician Documentation [facility] Name: Greg Serna Age: 29 yrs Sex: Male : 1990 Arrival Date: 11/21/2019 Time: 09:57 Bed 19 Private MD: Yuri Minaya T ED Physician Lukas Castillo HPI: 11/20 10:29 This 29 yrs old Male presents to ER via Ambulatory with complaints of Sore remigio Throat. 10:29 The patient presents with sore throat. The patient describes throat pain as raw, remigio scratchy. Onset: The symptoms/episode began/occurred 1 day(s) ago. Severity of symptoms: At their worst the symptoms were mild, in the emergency department the symptoms are unchanged. Modifying factors: The symptoms are alleviated by. Associated signs and symptoms: Pertinent positives: rhinorrhea, Sore throat. The patient has not experienced similar symptoms in the past. Historical: - Allergies: 10:19 No Known Allergies; ca1 - Home Meds: 10:19 olmesartan-hydrochlorothiazide oral 20-12.5mg oral 1 tab once daily [Active]; Xanax ca1 Oral [Active]; - PMHx: 10:19 Anxiety; Hypertension; ca1 - PSHx: 10:19 None; ca1 - Immunization history:: Adult Immunizations up to date. - Social history:: Smoking status: Patient reports the use of cigarette tobacco products, smokes one-half pack cigarettes per day. - Family history:: not pertinent. ROS: 10:29 Constitutional: Negative for fever, chills, and weight loss, Eyes: Negative for injury, remigio pain, redness, and discharge, Neck: Negative for injury, pain, and swelling, Cardiovascular: Negative for chest pain, palpitations, and edema, Respiratory: Negative for shortness of breath, cough, wheezing, and pleuritic chest pain, Abdomen/GI: Negative for abdominal pain, nausea, vomiting, diarrhea, and constipation, Back: Negative for injury and pain, : Negative for injury, bleeding, discharge, and swelling, MS/Extremity: Negative for injury and deformity, Skin: Negative for injury, rash, and discoloration, Neuro: Negative for headache, weakness, numbness, tingling, and seizure, Psych: Negative for depression, anxiety, suicide ideation, homicidal ideation, and hallucinations, Allergy/Immunology: Negative for hives, rash, and allergies, Endocrine: Negative for neck swelling, polydipsia, polyuria, polyphagia, and marked weight changes, Hematologic/Lymphatic: Negative for swollen nodes, abnormal bleeding, and unusual bruising. 10:29 ENT: Positive for difficulty swallowing. 10:29 Neck: Negative for injury or acute deformity, pain with movement, pain at rest, stiffness. Exam: 10:29 Constitutional: This is a well developed, well nourished patient who is awake, alert, remigio and in no acute distress. Head/Face: Normocephalic, atraumatic. Eyes: Pupils equal round and reactive to light, extra-ocular motions intact. Lids and lashes normal. Conjunctiva and sclera are non-icteric and not injected. Cornea within normal limits. Periorbital areas with no swelling, redness, or edema. Neck: Trachea midline, no thyromegaly or masses palpated, and no cervical lymphadenopathy. Supple, full range of motion without nuchal rigidity, or vertebral point tenderness. No Meningismus. Chest/axilla: Normal chest wall appearance and motion. Nontender with no deformity. No lesions are appreciated. Cardiovascular: Regular rate and rhythm with a normal S1 and S2. No gallops, murmurs, or rubs. Normal PMI, no JVD. No pulse deficits. Respiratory: Lungs have equal breath sounds bilaterally, clear to auscultation and percussion. No rales, rhonchi or wheezes noted. No increased work of breathing, no retractions or nasal flaring. Abdomen/GI: Soft, non-tender, with normal bowel sounds. No distension or tympany. No guarding or rebound. No evidence of tenderness throughout. Back: No spinal tenderness. No costovertebral tenderness. Full range of motion. Skin: Warm, dry with normal turgor. Normal color with no rashes, no lesions, and no evidence of cellulitis. MS/ Extremity: Pulses equal, no cyanosis. Neurovascular intact. Full, normal range of motion. Neuro: Awake and alert, GCS 15, oriented to person, place, time, and situation. Cranial nerves II-XII grossly intact. Motor strength 5/5 in all extremities. Sensory grossly intact. Cerebellar exam normal. Normal gait. Psych: Awake, alert, with orientation to person, place and time. Behavior, mood, and affect are within normal limits. 10:29 ENT: Posterior pharynx: erythema, that is mild, that is moderate. Vital Signs: 10:17 BP 118 / 67; Pulse 72; Resp 16 S; Temp 97.2(TE); Pulse Ox 100% on R/A; Weight 81.65 kg ca1 (R); Height 5 ft. 6 in. (167.64 cm) (R); Pain 6/10; 10:50 BP 107 / 79; Pulse 69; Resp 15 S; Pulse Ox 100% on R/A; ca1 10:17 Body Mass Index 29.05 (81.65 kg, 167.64 cm) ca1 MDM: 10:19 Patient medically screened. [facility] 10:31 Data reviewed: vital signs, nurses notes. [facility] 10:31 Differential diagnosis: Allergic rhinitis, laryngitis, peritonsillar abscess remigio pharyngitis, tonsillitis, upper respiratory infection, uvulitis. Data interpreted: court recording monitor: rate is 72 beats/min, Pulse oximetry: on room air is 100 %. Counseling: I had a detailed discussion with the patient and/or guardian regarding: the historical points, exam findings, and any diagnostic results supporting the discharge/admit diagnosis, the need for outpatient follow up, for definitive care, a family practitioner. 10:32 ED course: pt refused to allow throat. ED course: red sore throat. [facility] Administered Medications: 10:34 Drug: Augmentin 875 mg Route: PO; ca1 10:50 Follow up: Response: No adverse reaction ca1 Disposition: 11/21/19 10:35 Discharged to Home. Impression: Acute tonsillitis. - Condition is Stable. - Discharge Instructions: Tonsillitis, Tonsillitis, [id number]. - Prescriptions for Augmentin 875- 125 mg Oral Tablet - take 1 tablet by ORAL route every 12 hours for 10 days; 20 tablet. - Medication Reconciliation Form, Thank You Letter, Antibiotic Education, Prescription Opioid Use, Work release form form. - Follow up: Yuri Minaya MD; When: 2 - 3 days; Reason: Recheck today's complaints, Continuance of care, Re-evaluation by your physician. - Problem is new. - Symptoms have improved. Signatures: Dispatcher [employer] EDMS Lukas Castillo MD MD [facility] Ayde Hong RN RN ca1 Corrections: (The following items were deleted from the chart) 10:27 10:17 Group A Streptococcus Rapid [id number] ordered. EDMS EDMS 10:51 10:35 11/21/2019 10:35 Discharged to Home. Impression: Acute tonsillitis. Condition is ca1 Stable. Forms are Medication Reconciliation Form, Thank You Letter, Antibiotic Education, Prescription Opioid Use. Follow up: Yuri Minaya; When: 2 - 3 days; Reason: Recheck today's complaints, Continuance of care, Re-evaluation by your physician. Problem is new. Symptoms have improved. remigio
[2019-11-21] MEDS ORDERED: AMOX/K CLAV 875 MG TAB ONE (10:41)
[2019-11-21 10:57] VITALS: TEMP 97.2; O2SAT 100
[2019-11-21 10:59] VITALS: BP 107/79
== END 2019-11-21 10:51 | disposition home or self-care (01) ==
LOC: ER 09:55
DX: J03.90 Acute tonsillitis, unspecified (principal); F41.9 Anxiety disorder, unspecified; I10 Essential (primary) hypertension; F17.210 Nicotine dependence, cigarettes, uncomplicated
CPT/HCPCS: 99283

== ENCOUNTER 2023-04-17 20:09 | Emergency (ER) | payer SELFPAY ==
[2023-04-17] MEDS ORDERED: clonazePAM 1 MG TAB ONE (21:26)
[2023-04-17] MEDS ORDERED: lisinopriL 20 MG TAB ONE (21:26)
[2023-04-17] MEDS ORDERED: NA CHLORIDE 0.9% 1,000 ML ONE (21:27)
[2023-04-17] MEDS ORDERED: LORazepam 2 MG/ML VIAL ONE (21:27)
[2023-04-17 21:30] LABS: Absolute Lymphocytes (CBC) 1.8 K/uL (0.7-4.9); Hematocrit 42.8 % (39.6-49.0); MPV 6.9 fL (7.6-11.3); Platelets 291 thou/uL (152-406); RBC Red Blood Cell Count 4.45 M/uL (4.33-5.43)
[2023-04-17 21:39] LABS: Specific Gravity 1.017 (1.005-1.030); Urine Bilirubin NEGATIVE (Negative); Urine Blood Negative (Negative); Urine Clarity Clear (Clear); Urine Color Light-Yellow (Yellow); Urine Glucose NEGATIVE (Negative); Urine Protein NEGATIVE (Negative); Urine Urobilinogen Normal (Normal); Urine pH 6.5 (5.0-7.0)
[2023-04-17 21:49] LABS: Bilirubin Total 0.6 mg/dL (0.2-1.0); Potassium 4.2 mEq/L (3.5-5.1); Protein, Total 7.9 g/dL (6.4-8.2)
[2023-04-17 21:59] LABS: Barbiturates NEGATIVE (NEGATIVE); Benzodiazepines POSITIVE (NEGATIVE); Cocaine NEGATIVE (NEGATIVE); METHAMPHETAM NEGATIVE (NEGATIVE); Methadone NEGATIVE (NEGATIVE); Opiates NEGATIVE (NEGATIVE); Phencyclidine NEGATIVE (NEGATIVE); THC Cannibis NEGATIVE (NEGATIVE)
--- NOTE | 2023-04-17 22:05 | EDPHYS ---
Physician Documentation [facility] Name: Greg Serna Age: 32 yrs Sex: Male : 1990 Arrival Date: 04/17/2023 Time: 20:09 Bed 13 Private MD: KOFI Physician Lukas Castillo HPI: 04/17 20:56 This 32 yrs old Male presents to ER via Ambulatory with complaints of flanlk remigio pain, htn and anxiety. 20:56 The patient presents to the emergency department with anxiety. Onset: The remigio symptoms/episode began/occurred 3 day(s) ago. Past psychiatric history: Prior diagnosis: anxiety and htn. The patient presents with pain that is acute, with no known mechanism of injury. The symptoms are located in the low back, left mid back and right mid back. Onset: The symptoms/episode began/occurred 3 day(s) ago. The pain does not radiate. bilateral flank pain, htn out of bp meds and xanax. Historical: - Allergies: 20:24 No Known Allergies; lg3 - Home Meds: 20:24 Xanax Oral [Active]; olmesartan-hydrochlorothiazide 20-12.5mg Oral 1 tab once daily lg3 [Active]; - PMHx: 20:24 Anxiety; Hypertension; lg3 - PSHx: 20:24 None; lg3 - Immunization history:: Adult Immunizations up to date. - Social history:: Smoking status: Patient denies any tobacco usage or history of. Patient uses alcohol, on a daily basis. - Family history:: not pertinent. ROS: 20:56 Constitutional: Negative for fever, chills, and weight loss, Eyes: Negative for injury, remigio pain, redness, and discharge, ENT: Negative for injury, pain, and discharge, Neck: Negative for injury, pain, and swelling, Cardiovascular: Negative for chest pain, palpitations, and edema, Respiratory: Negative for shortness of breath, cough, wheezing, and pleuritic chest pain, Abdomen/GI: Negative for abdominal pain, nausea, vomiting, diarrhea, and constipation, : Negative for injury, bleeding, discharge, and swelling, MS/Extremity: Negative for injury and deformity, Skin: Negative for injury, rash, and discoloration, Neuro: Negative for headache, weakness, numbness, tingling, and seizure, 20:56 Back: Positive for flank pain, bilaterally, Exam: 20:56 Constitutional: This is a well developed, well nourished patient who is awake, alert, remigio and in no acute distress. Head/Face: Normocephalic, atraumatic. Eyes: Pupils equal round and reactive to light, extra-ocular motions intact. Lids and lashes normal. Conjunctiva and sclera are non-icteric and not injected. Cornea within normal limits. Periorbital areas with no swelling, redness, or edema. ENT: Nares patent. No nasal discharge, no septal abnormalities noted. Tympanic membranes are normal and external auditory canals are clear. Oropharynx with no redness, swelling, or masses, exudates, or evidence of obstruction, uvula midline. Mucous membranes moist. Neck: Trachea midline, no thyromegaly or masses palpated, and no cervical lymphadenopathy. Supple, full range of motion without nuchal rigidity, or vertebral point tenderness. No Meningismus. Chest/axilla: Normal chest wall appearance and motion. Nontender with no deformity. No lesions are appreciated. Cardiovascular: Regular rate and rhythm with a normal S1 and S2. No gallops, murmurs, or rubs. Normal PMI, no JVD. No pulse deficits. Respiratory: Lungs have equal breath sounds bilaterally, clear to auscultation and percussion. No rales, rhonchi or wheezes noted. No increased work of breathing, no retractions or nasal flaring. Abdomen/GI: Soft, non-tender, with normal bowel sounds. No distension or tympany. No guarding or rebound. No evidence of tenderness throughout. Male : Normal genitalia with no discharge or lesions. Skin: Warm, dry with normal turgor. Normal color with no rashes, no lesions, and no evidence of cellulitis. MS/ Extremity: Pulses equal, no cyanosis. Neurovascular intact. Full, normal range of motion. Neuro: Awake and alert, GCS 15, oriented to person, place, time, and situation. Cranial nerves II-XII grossly intact. Motor strength 5/5 in all extremities. Sensory grossly intact. Cerebellar exam normal. Normal gait. 20:56 Back: pain, that is mild, of the left mid back and right mid back, ROM is normal, normal spinal alignment noted, CVA tenderness, that is mild, is noted bilaterally, muscle spasm, is not present, 20:56 Psych: Behavior/mood is cooperative, anxious, Affect is animated, Oriented to person, place, time, Patient has no thoughts/intents to harm self or others. Judgement / Insight is normal. Memory is normal. Recent memory is intact. Remote memory is intact. Delusions/hallucinations are not present. Vital Signs: 20:22 BP 140 / 107; Pulse 88; Resp 17; Temp 98.6(O); Pulse Ox 99% on R/A; Weight 74.84 kg lg3 (R); Height 5 ft. 6 in. (R); 21:08 BP 148 / 104; Pulse 87; Resp 17 S; Pulse Ox 100% on R/A; jw7 22:15 BP 131 / 78; Pulse 90; Resp 16 S; Pulse Ox 99% on R/A; jb4 20:22 Body Mass Index 26.63 (74.84 kg, 167.64 cm) lg3 MDM: 20:28 Patient medically screened. [facility] 21:04 Differential diagnosis: drug withdrawal. acute psychotic break, depression, psychosis remigio secondary to non-compliance, Cholelithiasis chronic back pain, Fatigue Hydronephrosis Pyelonephritis Renal Infarction sprain. Differential Diagnosis altered mental status. Data reviewed: vital signs, nurses notes, lab test result(s). Consideration of Admission/Observation Escalation of care including admission/observation considered. I considered the following discharge prescriptions or medication management in the emergency department Medications were administered in the Emergency Department. See MAR. Independent interpretation of the following test(s) in the Emergency Department quality assurance monitor final: rate is 88 beats/min, Rhythm is regular. Test considered but Not performed: EKG: no ekg needed. Historians other than the Patient: ems well informed. 04/17 20:54 Order name: CBC with Diff; Complete Time: 21:42 [facility] 04/17 20:54 Order name: Comprehensive Metabolic Panel; Complete Time: 22:04 [facility] 04/17 20:54 Order name: Urinalysis w/ reflexes; Complete Time: 21:42 remigio 04/17 20:54 Order name: UDS; Complete Time: 22:04 remigio Administered Medications: 21:25 Drug: Ativan IVP 1 mg IVP once Route: IVP; Site: right hand; jw 22:34 Follow up: Response: No adverse reaction; Marked relief of symptoms jb4 21:25 Drug: clonazePAM PO 1 mg PO once Route: PO; jw7 22:34 Follow up: Response: No adverse reaction; Marked relief of symptoms jb4 21:25 Drug: NS 0.9% IV 1000 ml IV at 1 bolus Per protocol; 1000 mL bolus Route: IV; Rate: 1 jw7 bolus; Site: right hand; 22:34 Follow up: Response: No adverse reaction; IV Status: Completed infusion; IV Intake: jb4 1000ml 21:25 Drug: Lisinopril PO 20 mg PO once Route: PO; jw7 22:34 Follow up: Response: No adverse reaction; Marked relief of symptoms jb4 Disposition Summary: 04/17/23 22:04 Discharge Ordered Notes: Location: Home remigio Problem: new remigio Symptoms: have improved remigio Condition: Stable remigio Diagnosis - Essential (primary) hypertension remigio - Adjustment disorder with anxiety remigio - Anxiety disorder, unspecified remigio - Encounter for issue of repeat prescription remigio Followup: remigio - With: Private Physician - When: 2 - 3 days - Reason: Recheck today's complaints, Continuance of care, Re-evaluation by your physician Followup: remigio - With: Albin Olvera MD - When: 2 - 3 days - Reason: Recheck today's complaints, Re-evaluation by your physician Discharge Instructions: - Discharge Summary Sheet remigio - Adjustment Disorder, Adult remigio - Hypertension, Adult remigio - Hypertension, Adult, [id number] remigio - How to Take Your Blood Pressure, [id number] remigio - Generalized Anxiety Disorder, Adult remigio - Managing Your Hypertension remigio - Supporting Someone With Anxiety remigio - Managing Anxiety, Adult remigio Forms: - Medication Reconciliation Form [facility] - Thank You Letter [facility] - Antibiotic Education remigio - Prescription Opioid Use [facility] - Patient Portal Instructions [facility] - Leadership Thank You Letter [facility] Prescriptions: - olmesartan 20 mg Oral tablet - take 1 tablet ORAL route once; 20 tablet; Refills: 0, Product Selection [facility] Permitted - Klonopin 1 mg Oral Tablet - take 1 tablet ORAL route every 12 hours As needed; 20 tablet; Refills: 0, remigio Product Selection Permitted Signatures: Dispatcher [employer] Lukas Adam MD MD cha Gibson, Lacie, RN RN lg3 Sharmila Danielle RN RN jw7 Joao Laws RN jb4
--- NOTE | 2023-04-17 22:05 | ER ---
Nurse's Notes [facility] Name: Greg Serna Age: 32 yrs Sex: Male : 1990 Arrival Date: 04/17/2023 Time: 20:09 Bed 13 Private MD: Diagnosis: Essential (primary) hypertension;Adjustment disorder with anxiety;Anxiety disorder, unspecified;Encounter for issue of repeat prescription Presentation: 04/17 20:22 Chief complaint: Patient states: both of my kidneys hurt for the last 2 days. i called lg3 my dr this morning but they cant see me until next week. im out of my meds so i haven't had any of my BP meds of xanax. Coronavirus screen: Client denies travel out of the [place] in the last 14 days. At this time, the client does not indicate any symptoms associated with coronavirus-19. Ebola Screen: No symptoms or risks identified at this time. Initial Sepsis Screen: Does the patient meet any 2 criteria? No. Patient's initial sepsis screen is negative. Does the patient have a suspected source of infection? No. Patient's initial sepsis screen is negative. Risk Assessment: Do you want to hurt yourself or someone else? Patient reports no desire to harm self or others. Onset of symptoms was April 15, 2023. 20:22 Method Of Arrival: Ambulatory 3 20:22 Acuity: TENNILLE 3 lg3 Triage Assessment: 20:24 General: Appears in no apparent distress. uncomfortable, Behavior is cooperative, lg3 anxious. Pain: Complains of pain in back. EENT: No deficits noted. No signs and/or symptoms were reported regarding the EENT system. Neuro: No deficits noted. Nam Agitation-Sedation Scale (RASS): 0 - Alert and Calm Level of Consciousness is awake, alert, obeys commands, Oriented to person, place, time, situation. Cardiovascular: No deficits noted. Denies chest pain, shortness of breath, Capillary refill < 3 seconds Clubbing of nail beds is absent JVD is absent Patient's skin is warm and dry. Respiratory: No deficits noted. Airway is patent Respiratory effort is even, unlabored, Respiratory pattern is regular, symmetrical. GI: No deficits noted. No signs and/or symptoms were reported involving the gastrointestinal system. : No deficits noted. No signs and/or symptoms were reported regarding the genitourinary system. Derm: No deficits noted. No signs and/or symptoms reported regarding the dermatologic system. Skin is intact, is healthy with good turgor, Skin is dry, Skin is normal, Skin temperature is warm. Musculoskeletal: No deficits noted. Circulation, motion, and sensation intact. Range of motion: intact in all extremities. Historical: - Allergies: 20:24 No Known Allergies; lg3 - Home Meds: 20:24 Xanax Oral [Active]; olmesartan-hydrochlorothiazide 20-12.5mg Oral 1 tab once daily lg3 [Active]; - PMHx: 20:24 Anxiety; Hypertension; lg3 - PSHx: 20:24 None; lg3 - Immunization history:: Adult Immunizations up to date. - Social history:: Smoking status: Patient denies any tobacco usage or history of. Patient uses alcohol, on a daily basis. - Family history:: not pertinent. Screenin:09 [facility] ED Fall Risk Assessment (Adult) History of falling in the last 3 months, jw7 including since admission No falls in past 3 months (0 pts) Score/Fall Risk Level 0 - 2 = Low Risk Oriented to surroundings, Maintained a safe environment. Abuse screen: Denies threats or abuse. Denies injuries from another. Nutritional screening: No deficits noted. Tuberculosis screening: No symptoms or risk factors identified. Assessment: 21:08 General: see triage assessment. jw7 22:00 Reassessment: Patient appears in no apparent distress at this time. Patient and/or jb4 family updated on plan of care and expected duration. Pain level reassessed. Patient is alert, oriented x 3, equal unlabored respirations, skin warm/dry/pink. Patient states feeling better. Patient states symptoms have improved. Vital Signs: 20:22 BP 140 / 107; Pulse 88; Resp 17; Temp 98.6(O); Pulse Ox 99% on R/A; Weight 74.84 kg lg3 (R); Height 5 ft. 6 in. (R); 21:08 BP 148 / 104; Pulse 87; Resp 17 S; Pulse Ox 100% on R/A; jw7 22:15 BP 131 / 78; Pulse 90; Resp 16 S; Pulse Ox 99% on R/A; jb4 20:22 Body Mass Index 26.63 (74.84 kg, 167.64 cm) lg3 ED Course: 20:20 Patient arrived in ED. lg3 20:24 Triage completed. lg3 20:24 Arm band placed on right wrist. lg3 20:28 Lukas Castillo MD is Attending Physician. remigio 21:07 Sharmila Danielle, JOAN is Primary Nurse. jw7 21:09 Patient has correct armband on for positive identification. Bed in low position. Call jw7 light in reach. 21:21 Inserted saline lock: 20 gauge in right hand, using aseptic technique. Blood collected. ls5 21:21 Urine collected: clean catch specimen, clear. ls5 22:04 Albin Olvera MD is Referral Physician. [facility] 22:31 No provider procedures requiring assistance completed. IV discontinued, intact, jb4 bleeding controlled, No redness/swelling at site. Pressure dressing applied. 22:32 Provided Education on: discharge instructions and medication usage. jb4 Administered Medications: 21:25 Drug: Ativan IVP 1 mg IVP once Route: IVP; Site: right hand; jw7 22:34 Follow up: Response: No adverse reaction; Marked relief of symptoms jb4 21:25 Drug: clonazePAM PO 1 mg PO once Route: PO; jw7 22:34 Follow up: Response: No adverse reaction; Marked relief of symptoms jb4 21:25 Drug: NS 0.9% IV 1000 ml IV at 1 bolus Per protocol; 1000 mL bolus Route: IV; Rate: 1 jw7 bolus; Site: right hand; 22:34 Follow up: Response: No adverse reaction; IV Status: Completed infusion; IV Intake: jb4 1000ml 21:25 Drug: Lisinopril PO 20 mg PO once Route: PO; jw7 22:34 Follow up: Response: No adverse reaction; Marked relief of symptoms jb4 Medication: 22:32 VIS not applicable for this client. jb4 Intake: 22:34 IV: 1000ml; Total: 1000ml. jb4 Outcome: 22:04 Discharge ordered by . remigio 22:31 Discharged to home ambulatory, jb4 22:31 Condition: stable 22:31 Discharge instructions given to patient, Instructed on discharge instructions, follow up and referral plans. medication usage, Demonstrated understanding of instructions, follow-up care, medications, Prescriptions given X 2, 22:33 Patient left the ED. jb4 Signatures: Lukas Castillo MD MD cha Bryson, James RN RN jb4 Lissette Morillo, RN RN lg3 Sharmila Danielle RN RN jw7 Terry Boucher5
[2023-04-17 22:45] VITALS: TEMP 98.6
[2023-04-17 22:47] VITALS: BP 131/78; O2SAT 99
== END 2023-04-17 22:33 | disposition home or self-care (01) ==
LOC: ER 20:09
DX: F43.22 Adjustment disorder with anxiety (principal); I10 Essential (primary) hypertension; Z76.0 Encounter for issue of repeat prescription
CPT/HCPCS: 36415; 80053; 80307; 81003; 85025; 96361; 96374; 99284; J7030